=== PATIENT | male | born 2000 | race African-American/Black ===

== ENCOUNTER 2023-09-16 11:51 | Emergency (ER) | payer BC, OTHER ==
[~2023-09-16] VITALS: Ht 177.8 cm; Wt 82.0 kg
[2023-09-16 11:51] VITALS: BP 170/90; PULSE 115; RESP 16; TEMP 98.3; O2SAT 99
[2023-09-16] MEDS ORDERED: ONDANSETRON HCL 4MG/2ML INJ IV STA (11:56)
[2023-09-16] MEDS ORDERED: SODIUM CHLORIDE 0.9% 1,000 ML IV ONE (12:00)
[2023-09-16 12:48] LABS: BASOPHILS % 0.8 % (0.0-2.0); EOSINOPHILS % 0.2 % (0.0-5.0); HEMATOCRIT. 46.8 % (42.0-52.0); HEMOGLOBIN. 15.1 g/dL (14.0-18.0); LYMPHOCYTES % 13.7 % (20.0-50.0); MEAN CORPUSCULAR HEMOGLOBIN 27.7 pg (28.0-32.0); MEAN CORPUSCULAR HGB CONC 32.3 g/dL (31.0-37.0); MEAN CORPUSCULAR VOLUME 85.9 fL (80.0-94.0); MEAN PLATELET VOLUME 8.9 fl (7.4-10.4); MONOCYTES % 6.8 % (2.0-8.0); NEUTROPHILS % 78.5 % (40.0-76.0); PLATELET 279 x1000/uL (130-400); RED BLOOD CELL COUNT 5.45 mill/uL (4.7-6.1); RED CELL DISTRIBUTION WIDTH 13.6 % (11.6-14.6); WHITE BLOOD COUNT 14.3 x1000/uL (4.5-11.0)
[2023-09-16 13:23] LABS: ALANINE AMINOTRANSFERASE 30 IU/L (10-49); ALBUMIN 5.4 g/dL (3.2-4.8); ASPARTATE AMINOTRANSFERASE 34 IU/L (<34); BILIRUBIN TOTAL 1.1 mg/dL (0.1-1.0); CALCIUM 10.3 mg/dL (8.7-10.4); CARBON DIOXIDE 19 mEq/L (21-32); CHLORIDE 101 mEq/L (98-107); CREATININE 1.1 mg/dL (0.6-1.3); GLUCOSE 162 mg/dL (70-105); POTASSIUM 3.9 mEq/L (3.5-5.1); PROTEIN TOTAL 8.8 g/dL (6.0-8.3); SODIUM 139 mEq/L (136-145); UREA NITROGEN BLOOD 11 mg/dL (9-23)
[2023-09-16 13:30] LABS: ETHANOL BLOOD < 10 mg/dL (<10)
== END 2023-09-16 15:08 | disposition home or self-care (01) ==
LOC: ER 11:51
DX: R56.9 Unspecified convulsions (principal); F41.9 Anxiety disorder, unspecified
CPT/HCPCS: 80053; 80320; 85025; 36415; 96361; 96374; 99283; J2405; J7030; Z7610; G0480

== ENCOUNTER 2025-04-02 22:41 | Emergency (ER) | payer OTHER ==
[~2025-04-02] VITALS: Ht 182.9 cm; Wt 75.0 kg
[2025-04-02 22:52] VITALS: TEMP 36.8; O2SAT 100
[2025-04-02 23:08] VITALS: BP 133/84; PULSE 105; RESP 15; O2SAT 98
== END 2025-04-02 23:32 | disposition left against medical advice (07) ==
LOC: ER 22:41
DX: R56.9 Unspecified convulsions (principal); F41.9 Anxiety disorder, unspecified; F17.200 Nicotine dependence, unspecified, uncomplicated
CPT/HCPCS: 99284